=== PATIENT | female | born 2000 | race American Indian/Alaskan Native ===

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

== ENCOUNTER 2021-08-10 08:35 | Emergency (ER) | payer SELFPAY ==
[2021-08-10 10:42] LABS: HCG Qualitative,Urine Negative (Negative)
[2021-08-10 10:50] LABS: Bacteria,Urine 1+ /HPF (Negative); Mucus,Urine FEW /HPF; WBC,Urine < 1.0 /HPF (0.0-6.0)
[2021-08-10 11:06] LABS: Color,Urine Straw (Yellow)
[2021-08-10 11:09] LABS: Bilirubin,Urine Negative (Negative); Blood,Urine Negative (Negative); PH,Urine 6.5 (5.0-7.0)
[2021-08-10 11:10] LABS: Protein,Urine <15 mg/dL mg/dL (Negative); Urobilinogen,Urine < 2.0 mg/dL (<2.0)
--- NOTE | 2021-08-10 12:04 | Emergency Department Report ---
ED Abdominal Pain HPI - General Chief Complaint: Abdominal Pain Stated Complaint: CHEST PAIN Time Seen by Provider: 08/10/21 11:24 Source: patient Mode of arrival: Ambulatory Limitations: No Limitations - History of Present Illness Initial Comments: 21-year-old female who has a history of anemia but no other significant past medical history presents to the ER today with complaints of upper abdominal pain. Patient stated chest pain but she points to her upper abdomen. She reports diffuse upper abdominal pain which started around 7 AM this morning. She states that the pain has been intermittent and she described as sharp and stabbing. She states that certain movement seems to make it worse. She has not noticed anything to improve with. She denies any associated nausea or vomiting. She states that her last bowel movement was last night and normal. Last menstrual cycle was August 01. She is not currently on any control. She denies any UTI symptoms. She has had no abdominal surgeries in the past. She does smoke marijuana but not tobacco. She denies any illicit drug use, or alcohol abuse. She denies any family history of heart disease. MD Complaint: abdominal pain -: This morning (7am) - Related Data Previous Rx's Medication Instructions Recorded Last Taken Type Ketorolac [Toradol] 10 mg PO Q6H PRN #15 tablet 08/20/18 Unknown Rx Docusate Sodium [Colace] 100 mg PO BID PRN #60 capsule 11/18/19 Unknown Rx Ferrous Sulfate [Feosol 325 MG tab] 325 mg PO BID #60 tablet 11/18/19 Unknown Rx Acetaminophen [Acetaminophen 8 650 mg PO Q8H PRN #30 tab 08/10/21 Unknown Rx Hour] Famotidine [Pepcid] 20 mg PO BID #30 tablet 08/10/21 Unknown Rx Allergies Allergy/AdvReac Type Severity Reaction Status Date / Time No Known Allergies Allergy Unverified 08/20/18 17:56 ED Review of Systems ROS: Stated complaint: CHEST PAIN Other details as noted in HPI Comment: All other systems reviewed and negative Constitutional: denies: chills, fever Eyes: denies: eye pain, eye discharge, vision change ENT: denies: ear pain, throat pain, dental pain, hearing loss, epistaxis, congestion Respiratory: denies: cough, shortness of breath, SOB with exertion, SOB at rest, wheezing Cardiovascular: denies: chest pain, palpitations Gastrointestinal: abdominal pain. denies: nausea, vomiting, diarrhea, constipation, hematemesis, melena, hematochezia Genitourinary: denies: urgency, dysuria, frequency, hematuria, discharge, abnormal menses, dyspareunia Musculoskeletal: denies: back pain, joint swelling, arthralgia Skin: denies: rash, lesions, change in color, change in hair/nails, pruritus Neurological: denies: headache, weakness, numbness, paresthesias, confusion, abnormal gait, vertigo Psychiatric: denies: as per HPI, anxiety, depression, auditory hallucinations, visual hallucinations, homicidal thoughts, suicidal thoughts Hematological/Lymphatic: denies: easy bleeding, swollen glands ED Past Medical Hx - Social History Smoking Status: Never Smoker Substance Use Type: None - Medications Home Medications: Home Medications Medication Instructions Recorded Confirmed Last Taken Type Ketorolac [Toradol] 10 mg PO Q6H PRN #15 tablet 08/20/18 Unknown Rx Docusate Sodium [Colace] 100 mg PO BID PRN #60 capsule 11/18/19 Unknown Rx Ferrous Sulfate [Feosol 325 MG tab] 325 mg PO BID #60 tablet 11/18/19 Unknown Rx Acetaminophen [Acetaminophen 8 650 mg PO Q8H PRN #30 tab 08/10/21 Unknown Rx Hour] Famotidine [Pepcid] 20 mg PO BID #30 tablet 08/10/21 Unknown Rx ED Physical Exam - General Limitations: No Limitations General appearance: alert, in no apparent distress, obese - Head Head exam: Present: atraumatic, normocephalic, normal inspection - Eye Eye exam: Present: normal appearance, PERRL, EOMI - Neck Neck exam: Present: normal inspection, full ROM. Absent: meningismus - Respiratory Respiratory exam: Present: normal lung sounds bilaterally. Absent: respiratory distress, wheezes, rales, rhonchi - Cardiovascular Cardiovascular Exam: Present: regular rate, normal rhythm, normal heart sounds - GI/Abdominal GI/Abdominal exam: Present: soft, tenderness (Mild right upper, epigastric and left upper quadrant tenderness without guarding or rebound). Absent: distended, guarding, rebound, rigid - Neurological Exam Neurological exam: Present: alert, oriented X3 - Psychiatric Psychiatric exam: Present: normal affect, normal mood - Skin Skin exam: Present: intact ED Course Vital Signs 08/10/21 09:46 Temperature 98.6 F Pulse Rate 86 Respiratory 16 Rate Blood Pressure 119/65 [Left] O2 Sat by Pulse 99 Oximetry ED Medical Decision Making - Medical Decision Making 21-year-old female who has a history of anemia but no other significant past medical history presents to the ER today with complaints of upper abdominal pain. Patient stated chest pain but she points to her upper abdomen. She reports diffuse upper abdominal pain which started around 7 AM this morning. She states that the pain has been intermittent and she described as sharp and stabbing. She states that certain movement seems to make it worse. She has not noticed anything to improve with. She denies any associated nausea or vomiting. She states that her last bowel movement was last night and normal. Last menstrual cycle was August 01. She is not currently on any control. She denies any UTI symptoms. She has had no abdominal surgeries in the past. She does smoke marijuana but not tobacco. She denies any illicit drug use, or alcohol abuse. She denies any family history of heart disease. 1218: Patient is well-appearing, nontoxic and not in any significant distress. She is neurologically intact. Gait is normal. Vital signs are stable. She has a benign abdominal exam. Chest is clear to auscultation. Exact cause of her upper abdominal discomfort is unclear but at this time I do not see any indication for work-up or admission or specialist consult. Patient will be given medication to help with discomfort and recommend she follows up with her primary care doctor. She understands to return to the ER if worse. Patient was stable at time of discharge. Critical care attestation.: If time is entered above; I have spent that time in minutes in the direct care of this critically ill patient, excluding procedure time. ED Disposition Clinical Impression: Upper abdominal pain Disposition: HOME / SELF CARE / HOMELESS Is pt being admited?: No Does the pt Need Aspirin: No Condition: Stable Instructions: Abdominal Pain, Adult, [id number], Abdominal Pain (ED) Additional Instructions: Take the Pepcid and the Tylenol as prescribed. Follow-up with your primary care doctor. Return to the ER if your symptoms changes or worsens in any way. Prescriptions: Acetaminophen [Acetaminophen 8 Hour] 650 mg PO Q8H PRN #30 tab PRN Reason: pain Famotidine [Pepcid] 20 mg PO BID #30 tablet Referrals: MAGDALENO ANN MD [Staff Physician] - 3-5 Days Time of Disposition: 12:13
[2021-08-10 12:20] VITALS: BP 120/70
== END 2021-08-10 12:20 | disposition home or self-care (01) ==
LOC: ED 08:35
DX: R10.10 Upper abdominal pain, unspecified (principal)
CPT/HCPCS: 81001; 81025; 99283